=== PATIENT | female | born 1980 | race Hispanic/Latino ===

== ENCOUNTER 2016-10-04 05:53 | Inpatient (IN) ==
[2016-10-04] MEDS ORDERED: PEPCID PO ONE (05:59)
[2016-10-04] MEDS ORDERED: LR 1,000 ML IV SCH (05:59)
[2016-10-04] MEDS ORDERED: KEFZOL 1 GM/D5W 1 GM/50 ML IVPB IV PRN (05:59)
[2016-10-04] MEDS ORDERED: REGLAN PO ONE (05:59)
[2016-10-04] MEDS ORDERED: BICITRA PO ONE (06:15)
[2016-10-04] MEDS ORDERED: PEPCID IV ONE (06:15)
[2016-10-04] MEDS ORDERED: DURAMORPH ONE (06:24)
[2016-10-04] MEDS ORDERED: PITOCIN 20 UNITS/LR 20 UNITS/1,000 ML IV.SOLN ONE (06:24)
[2016-10-04] MEDS ORDERED: PITOCIN ONE (06:24)
[2016-10-04] MEDS ORDERED: EPHEDRINE ONE (06:24)
[2016-10-04] MEDS ORDERED: FENTANYL ONE (06:25)
[2016-10-04] MEDS: LR 1,000 ML IV SCH ×2 (06:34→07:02)
[2016-10-04 06:52] LABS: MANUAL DIFF NEEDED? NO; URINE SOURCE VOIDED
[2016-10-04 06:55] LABS: BILIRUBIN URINE NEGATIVE (NEGATIVE); BLOOD URINE NEGATIVE (NEGATIVE); CLARITY CLEAR (CLEAR); COLOR YELLOW; GLUCOSE URINE NEGATIVE (NEGATIVE); LEUKOCYTES URINE 1+ (NEGATIVE); NITRITE URINE NEGATIVE (NEGATIVE); PH URINE 6.5; PROTEIN URINE NEGATIVE (NEGATIVE); UROBILINOGEN URINE NORMAL
[2016-10-04 07:01] LABS: BASO% 0.3 % (0.0-0.8); EOS# 0.27 X1000 (0.0-0.7); HEMATOCRIT 36.5 % (37.0-47.0); HEMOGLOBIN 11.9 g/dL (12.0-16.0); IMM GRAN# 0.11 X1000 (0.0-0.04); IMM GRAN% 0.8 % (0.0-0.5); LYMPH# 3.33 X1000 (1.2-3.4); LYMPH% 24.6 % (20.5-51.1); MCHC 32.6 g/dL (33-37); MONO# 1.05 X1000 (0.11-0.59); MONO% 7.8 % (1.7-9.3); MPV 10.5 FL (7.4-10.4); NEUT% 64.5 % (42.2-75.2); PLT 338 X1000 (130-400)
[2016-10-04] MEDS ORDERED: NEO-SYNEPHRINE ONE (07:24)
[2016-10-04] MEDS ORDERED: ZOFRAN ONE (07:53)
[2016-10-04] MEDS ORDERED: TORADOL ONE (07:58)
[2016-10-04] MEDS ORDERED: AMBIEN PO PRN (09:10)
[2016-10-04] MEDS ORDERED: DEMEROL PO PRN ×2 (09:10)
[2016-10-04] MEDS ORDERED: PITOCIN IM PRN (09:10)
[2016-10-04] MEDS ORDERED: CYTOTEC PO PRN (09:10)
[2016-10-04] MEDS ORDERED: PITOCIN 20 UNITS/LR 20 UNITS/1,000 ML IV.SOLN IV ONE (09:10)
[2016-10-04] MEDS ORDERED: PHENERGAN IM PRN (09:10)
[2016-10-04] MEDS ORDERED: HYDROXYZINE IM PRN (09:10)
[2016-10-04] MEDS ORDERED: DULCOLAX PR PRN (09:10)
[2016-10-04] MEDS ORDERED: MYLICON PO PRN (09:10)
[2016-10-04] MEDS ORDERED: HYDROXYZINE PO PRN (09:10)
[2016-10-04] MEDS ORDERED: DEMEROL IM PRN (09:10)
[2016-10-04] MEDS ORDERED: ZOFRAN IV PRN ×2 (09:30)
[2016-10-04] MEDS ORDERED: ZOFRAN ODT PO PRN (09:30)
[2016-10-04] MEDS ORDERED: NARCAN INJ PRN (09:30)
[2016-10-04] MEDS ORDERED: BENADRYL IV PRN (09:30)
[2016-10-04] MEDS ORDERED: MORPHINE IV PRN (09:31)
[2016-10-04] MEDS: MYLICON PO SCH ×7 (11:27→20:16)
[2016-10-04] MEDS: PITOCIN 10 UNITS/LR 10 UNIT/1,000 ML IV.SOLN IV SCH ×2 (11:29→18:51)
[2016-10-04] MEDS: TORADOL IV SCH ×2 (18:49→23:22)
[2016-10-04] MEDS: PERICOLACE PO SCH (20:16)
--- NOTE | 2016-10-04 21:15 | OPERATIVE NOTE ---
PROCEDURE DATE: 10/04/2016 PREOPERATIVE DIAGNOSIS: 1. A 36-year-old, 4 para 2-0-1-2 at 39 weeks 3 days with a history of prior section x2. 2. Advanced maternal age. SURGEON: Dr. Coco Crocker. ESTIMATED BLOOD LOSS: 400 mL. [employer]: Nurse Max. FINDINGS: Omental adhesions to the anterior abdominal wall. Adhesions of the lower uterine segment. The vesicouterine peritoneum was adherent to the lower uterine segment. The lower uterine segment was very thin. The was delivered in right occiput anterior position, weighing 7 pounds 3 ounce, Apgars 8 and 9. COMPLICATIONS: None. TECHNIQUE: The patient was seen in the preop holding area where informed consent was verified. The patient agreed to proceed with planned procedure of repeat . The patient was taken to the OR. Timeout was held. A spinal was placed. Patient was then placed in the dorsal supine position with a left lateral tilt. Patient was prepped and draped in the normal sterile fashion. The anesthesia was found to be adequate. A Pfannenstiel incision was then made and carried down through the skin to the subcutaneous tissue to the fascia. The fascia was then incised in the midline and extended laterally using the Keller scissors. The anterior edge of the fascia was then grasped with the Janell clamps and the rectus muscles were dissected off of the fascia. The same was done to the inferior edge of the fascia. The rectus muscles were in the midline. The peritoneum was entered. The peritoneum was then extended laterally, superiorly and inferiorly manually. Abdominal adhesions were then taken down. The bladder flap was created after lysis of adhesions. A low transverse uterine incision was then made and extended laterally. The 's head was delivered atraumatically, followed by the body which had a body cord. The baby was bulb suctioned at delivery. The cord was then clamped and cut, and the was passed to the pediatric team. The placenta was then delivered intact, showing a 3- vessel cord. The uterus was then exteriorized and cleared of all debris and clots. The uterine incision was then closed with 0 Vicryl in a running, locked fashion. Figure of 8 sutures of 0 Vicryl was then used for good hemostasis. Good hemostasis was noted and the uterus was returned to the abdominal cavity. Irrigation was carried out until clear. The fascia was then reapproximated with running sutures of 0 Vicryl. The subcutaneous tissue was reapproximated with running sutures of 2-0 Vicryl. The skin was closed using running sutures of 3- 0 monocryl. A pressure dressing was placed. The patient tolerated the procedure well and was stable in the OR. The patient was taken to the recovery room in stable condition and the was taken to the nursery in stable condition. cc: Coco Crocker MD MTDAddy
[2016-10-05 06:42] LABS: MANUAL DIFF NEEDED? NO
[2016-10-05 06:54] LABS: BASO% 0.2 % (0.0-0.8); EOS# 0.33 X1000 (0.0-0.7); EOS% 2.7 % (0.0-10.0); HEMATOCRIT 34.2 % (37.0-47.0); IMM GRAN# 0.04 X1000 (0.0-0.04); IMM GRAN% 0.3 % (0.0-0.5); LYMPH# 2.45 X1000 (1.2-3.4); LYMPH% 20.3 % (20.5-51.1); MCH 28.7 PG (27-31); MCHC 32.2 g/dL (33-37); MCV 89.3 FL (81-99); MONO# 1.23 X1000 (0.11-0.59); MONO% 10.2 % (1.7-9.3); MPV 10.7 FL (7.4-10.4); NEUT% 66.3 % (42.2-75.2); PLT 325 X1000 (130-400); RBC 3.83 XMIL (4.2-5.4)
[2016-10-05] MEDS: MYLICON PO SCH ×5 (07:53→21:08)
[2016-10-05] MEDS ORDERED: PERCOCET-5 PO PRN (08:19)
[2016-10-05] MEDS ORDERED: LR 1,000 ML IV SCH (08:31)
[2016-10-05] MEDS: PERCOCET-10 PO PRN ×2 (12:30→19:06)
[2016-10-05] MEDS: MOTRIN PO PRN (18:21)
[2016-10-05] MEDS: PERICOLACE PO SCH (21:08)
[2016-10-06] MEDS ORDERED: BACITRACIN OINTMENT TOP PRN (00:04)
--- NOTE | 2016-10-06 00:12 | OB/GYN PROGRESS NOTE ---
Progress Note OB - . Patient Problems: Current Active Problems Problem Status Onset S/P repeat low transverse Acute OB Progress Note: Vital Signs - 24 hr 10/05/16 04:27 10/05/16 07:33 10/05/16 16:00 Temperature 98.1 F 98.4 F 98.2 F Pulse Rate 101 H 99 H 102 H Respiratory Rate 18 16 17 Blood Pressure 111/74 121/74 119/74 O2 Sat by Pulse Oximetry 97 98 10/05/16 21:06 Temperature 98.4 F Pulse Rate 94 H Respiratory Rate 18 Blood Pressure 121/66 O2 Sat by Pulse Oximetry 99 Laboratory Results - last 24 hr 10/05/16 05:00 WBC 12.08 H RBC 3.83 L Hgb 11.0 L Hct 34.2 L MCV 89.3 MCH 28.7 MCHC 32.2 L RDW Std Deviation 15.8 H Plt Count 325 MPV 10.7 H Immature Gran % (Auto) 0.3 Neut % (Auto) 66.3 Lymph % (Auto) 20.3 L [place] % (Auto) 10.2 H Eos % (Auto) 2.7 Baso % (Auto) 0.2 Immature Gran # (Auto) 0.04 Neut # (Auto) 8.00 H Lymph # (Auto) 2.45 [place] # (Auto) 1.23 H Eos # (Auto) 0.33 Baso # (Auto) 0.03 Patient reports soreness on abdomen where tape was removed. Ambulating and voiding without difficulty. Tolerating diet. Pain is well controlled. Reports minimal bleeding. Gen: NAD, alert Abd: incision clean dry and intact, fundus firm and at umbilicus; skin abrasions noted laterally where tape was applied Pelvis: minimal lochia rubra Ext: no edema, nontender, Lisa's- A/P: 36yo @ 39w3d who is POD#1 s/p RLTCS, doing well -continue routine care -continue regular diet -PO pain meds -encourage ambulation -bacitracin cream to skin abrasions Dispo: home tomorrow Coco Crocker MD [employer]
[2016-10-06] MEDS: PERCOCET-10 PO PRN (07:40)
[2016-10-06] MEDS: MOTRIN PO PRN (07:40)
[2016-10-06 07:48] VITALS: BP 115/68
[2016-10-06] MEDS: MYLICON PO SCH (09:15)
--- NOTE | 2016-11-08 18:22 | DISCHARGE SUMMARY ---
ADMISSION DATE: 10/04/2016 DISCHARGE DATE: 10/06/2016 ADMISSION DIAGNOSES: 1. A 36-year-old, 4, para 2-0-1-2, at 39 weeks 3 days. 2. History of prior section x2. 3. Advanced maternal age. PROCEDURE DATE: 10/04/2016 PROCEDURE: Repeat low transverse section. SURGEON: Dr. Coco Crocker. HOSPITAL COURSE: This 36-year-old 4, para 2-0-1-2 at 39 weeks and 3 days with a history of x2 and advanced maternal age underwent a repeat low transverse C- section, uncomplicated. Patient's postoperative course was unremarkable and patient was discharged home on postop day #2. PHYSICAL: General: No acute distress. Alert. Abdomen: Incision clean, dry , and intact. Fundus firm and below the umbilicus. Pelvis: Minimal lochia rubra. Extremities: No edema. Nontender. Homans- DISCHARGE INSTRUCTIONS: Keep incision clean and dry. Nothing per vagina. Patient may shower. The patient may continue regular diet. DISCHARGE MEDICATIONS: Percocet and ibuprofen. FOLLOWUP: Patient is to follow up with Dr. Crocker in clinic in 2 and 6 weeks. cc: Coco Crocker MD [facility]
== END 2016-10-06 13:00 | disposition home or self-care (01) ==
LOC: P.LD 05:53 → P.WC 10:48
PROVIDERS: ADMIT Student in an Organized Health Care Education/Training Program; ATTEND Student in an Organized Health Care Education/Training Program

== ENCOUNTER 2019-04-26 04:40 | Inpatient (IN) ==
--- NOTE | 2019-04-26 05:10 | EKG Report ---
Test Performed on : 04/26/2019 04:55:52 AM Test Reason : cp Blood Pressure : / mmHG Vent. Rate : 082 BPM Atrial Rate : 082 BPM P-R Int : 142 ms QRS Dur : 076 ms QT Int : 392 ms P-R-T Axes : 041 048 038 degrees QTc Int : 457 ms Normal sinus rhythm. Normal ECG No previous ECGs available Unconfirmed Result
[2019-04-26 05:57] LABS: URINE SOURCE CLEAN CATCH
[2019-04-26 05:58] LABS: BILIRUBIN URINE NEGATIVE (NEGATIVE); BLOOD URINE LARGE (NEGATIVE); COLOR BROWN; GLUCOSE URINE NEGATIVE (NEGATIVE); KETONE URINE NEGATIVE (NEGATIVE); LEUKOCYTES URINE MODERATE (NEGATIVE); NITRITE URINE NEGATIVE (NEGATIVE); PROTEIN URINE TRACE mg/dL (NEGATIVE); SP GRAVITY URINE 1.011; TURBIDITY URINE HAZY (CLEAR); UROBILINOGEN URINE NORMAL (NORMAL)
[2019-04-26 06:00] LABS: BASO# 0.03 X1000 (0.0-0.2); BASO% 0.2 % (0.0-0.8); EOS# 0.81 X1000 (0.0-0.7); EOS% 5.6 % (0.0-10.0); HEMATOCRIT 38.7 % (37.0-47.0); HEMOGLOBIN 12.6 g/dL (12.0-16.0); IMM GRAN# 0.05 X1000 (0.0-0.04); IMM GRAN% 0.3 % (0.0-0.5); LYMPH# 3.51 X1000 (1.2-3.4); LYMPH% 24.2 % (20.5-51.1); MCH 29.4 PG (27-31); MCHC 32.6 g/dL (33-37); MCV 90.2 FL (81-99); MONO# 0.92 X1000 (0.11-0.59); MONO% 6.3 % (1.7-9.3); MPV 10.2 FL (7.4-10.4); NEUT# 9.21 X1000 (1.4-6.5); NEUT% 63.4 % (42.2-75.2); PLT 337 X1000 (130-400); RBC 4.29 XMIL (4.2-5.4); RDW 14.6 % (11.5-14.5); WBC 14.53 X1000 (4.8-10.8)
[2019-04-26 06:00] LABS: UR EPITHELIAL CELLS <10 /HPF (<10); URINE BACTERIA NEGATIVE /HPF; URINE RBC TNTC /HPF (<10)
[2019-04-26 06:27] LABS: AGAP 14; ALB/GLOB RATIO 1.1; ALBUMIN 3.7 g/dL (3.5-5.0); ALKALINE PHOSPHATASE 99 U/L (32-104); BUN 14 mg/dL (8-22); CALCIUM 8.7 mg/dL (8.8-10.2); CHLORIDE 100 mmol/L (98-107); COSMO 273; CREATININE 0.5 mg/dL (0.5-0.9); ESTIMATED GFR > 60; GLUCOSE 107 mg/dL (70-104); GOT 13 U/L (10-30); GPT 11 U/L (10-36); LIPASE 11 U/L (13-60); POTASSIUM 3.5 mmol/L (3.5-5.1); SODIUM 136 mmol/L (136-145); TCO2 22 mmol/L (25-35); TOTAL BILIRUBIN 0.37 mg/dL (0.20-1.00); TOTAL PROTEIN 7.2 g/dL (6.3-8.3)
--- NOTE | 2019-04-26 06:27 | PROVIDER DOCUMENTATION ---
HPI-General Adult - General Chief Complaint: Epigastric Pain Stated Complaint: UPPER ABD PAIN/CHEST PAIN Time Seen by Provider: 04/26/19 04:57 Source: patient, family Allergies/Adverse Reactions: Patient Allergies Allergy/AdvReac Type Severity Reaction Status Date / Time No Known Allergies Allergy Verified 07/13/15 19:03 Home Medications: Home Medication List Medication Instructions Recorded Confirmed Last Taken Type Vit,Calc78/Iron/Folic 1 tab PO DAILY 07/13/15 10/04/16 Unknown History [Prenatabs FA Tablet] Ibuprofen [Motrin] 800 mg PO Q6H PRN PRN #30 tablet 10/05/16 Unknown Rx Oxycodone HCl/Acetaminophen 1 each PO Q4H PRN PRN #30 tablet 10/05/16 Unknown Rx [Percocet 5-325 mg Tablet] - History of Present Illness -Gen Adult Nature of Presenting Problems: Pt presents with RUQ pain, sharp, no radiation, constant, started a few hours ago, associated with n/v, pt has had similar a couple of months ago, pt has no pcp and hasn't been evaluated for it, pt denies f/c, bird, cp, sob, cough, diarrhea, pt is lying in bed in no acute distress. Location of Pain/Injury: reports: abdomen Pain Radiation: reports: no radiation Quality of Pain: reports: sharp Severity: reports: moderate Onset/Duration: reports: 1-3 hours ago Timing: reports: still present Context/Activities at Onset: reports: none Modifying Factors: improves with: nothing Associated Symptoms: reports: nausea, vomiting Similar Symptoms Previously?: Yes Recently seen or treated by another doctor?: No Review of Systems - Adult - REVIEW OF SYSTEMS - ADULT Constitutional: reports: no symptoms reported Eyes: reports: no symptoms reported Ears, Nose, Mouth & Throat: reports: no symptoms reported Cardiovascular: reports: no symptoms reported Respiratory: reports: no symptoms reported Gastrointestinal: reports: see HPI Genitourinary: reports: no symptoms reported Musculoskeletal: reports: no symptoms reported Integumentary: reports: no symptoms reported Neurological: reports: no symptoms reported Psychiatric: reports: no symptoms reported Endocrine: reports: no symptoms reported Hematologic/Lymphatic: reports: no symptoms reported Allergic/Immunologic: reports: no symptoms reported All Other Systems: Reviewed and Negative Past History - Adult - PAST MEDICAL HISTORY-ADULT Review of Records: reports: Old Records Reviewed, Nursing Assessment Review, Medications Reviewed, Social history reviewed & non-contributory. Major Childhood Illnesses: reports: denies history Cardiovascular: reports: denies history Respiratory: reports: denies history Gastrointestinal: reports: denies history Obstetrical/Gynecological: reports: denies history Genitourinary: reports: denies history Musculoskeletal: reports: denies history Neurological: reports: denies history Psychiatric: reports: denies history Endocrine/Immune: reports: denies history Other Conditions: reports: denies history - PRIOR SURGERIES/PROCEDURES Surgical/Procedure History: reports: none - IMMUNIZATION STATUS Childhood Immunizations: See Nurse Assessment Flu Vaccine: See Nurse Assessment Physical Exam-General - PHYSICAL EXAM-ADULT Initial Vital Signs Reviewed: Yes - CONSTITUTIONAL General Appearance: appears well - EYES Eyes: PERRL/EOMI - HEAD, EARS, NOSE, MOUTH & THROAT HENMT: normocephalic/atraumatic - NECK Neck: normal inspection - RESPIRATORY Respiratory: lungs clear, no respiratory distress, no accessory muscle use - CARDIOVASCULAR Cardiovascular: regular rate, rhythm - GASTROINTESTINAL (ABDOMEN) Abdominal Exam: normal bowel sounds, soft, tenderness (RUQ). negative: guarding - LYMPHATIC Lymphatic: no adenopathy - MUSCULOSKELETAL Back Exam: normal inspection Extremity: normal range of motion - SKIN Integumentary: normal color - NEUROLOGIC Neurologic: grossly normal - PSYCHIATRIC Psych/Mental Status: normal mood/affect Progress - PLAN OF CARE/RESULTS Progress/Plan/Lab Results: Vital Signs - 8 hr 04/26/19 04:45 Temperature 97.6 F Pulse Rate 74 Respiratory Rate 22 Blood Pressure 150/108 O2 Sat by Pulse Oximetry 98 Laboratory Results - last 24 hr 04/26/19 04/26/19 05:38 05:45 WBC 14.53 H RBC 4.29 Hgb 12.6 Hct 38.7 MCV 90.2 MCH 29.4 MCHC 32.6 L RDW Std Deviation 14.6 H Plt Count 337 MPV 10.2 Immature Gran % (Auto) 0.3 Neut % (Auto) 63.4 Lymph % (Auto) 24.2 [place] % (Auto) 6.3 Eos % (Auto) 5.6 Baso % (Auto) 0.2 Immature Gran # (Auto) 0.05 H Neut # (Auto) 9.21 H Lymph # (Auto) 3.51 H [place] # (Auto) 0.92 H Eos # (Auto) 0.81 H Baso # (Auto) 0.03 Urine Source CLEAN CATCH Urine Color BROWN Urine Turbidity HAZY Urine pH 6.0 Ur Specific [place] 1.011 Urine Protein TRACE A Ur Glucose (Stick) NEGATIVE Ur Ketones (Stick) NEGATIVE Urine Blood LARGE A Urine Nitrite NEGATIVE Urine Bilirubin NEGATIVE Urobilinogen Dipstick NORMAL Urine Leukocytes MODERATE A Urine WBC (Auto) 10-20 A Urine RBC (Auto) TNTC A U Epithel Cells (Auto) <10 Urine Bacteria (Auto) NEGATIVE Orders Category Date Time Status ED: Urine Bedside NOW Care 04/26/19 05:14 Active US GB < RUQ (LIMITED) [US] Stat Exams 04/26/19 05:14 Ordered CBC WITH ELECTRONIC DIFF [HEME] Stat Lab 04/26/19 05:38 Completed COMPREHENSIVE METABOLIC PANEL [CHEM] Stat Lab 04/26/19 05:38 Received LIPASE [CHEM] Stat Lab 04/26/19 05:38 Received URINALYSIS [URINALYSIS] Stat Lab 04/26/19 05:45 Completed EKG [EKG] Stat Ther 04/26/19 04:57 Draft Result Diagrams: 04/26/19 05:38 04/26/19 05:38 - REASSESSMENT Reassessment #1 Time Reassessed: 09:29 (assumed care @ shift change. seen, examined. nonstop, sharp epigastric/RUQ pain since yest, N/V. Tender to epigastrum, RUQ) - CONSULTS/PCP/HOSPITALIST Notification #1 *Consult/PCP/Hospitalist*: Paramjit Time Discussed: 09:35 Consult Disposition: Admit - CHANGE OF SHIFT REPORT (ED Provider) 1 Report Given and Care Transferred to:: Dr. Mehta Time of Transfer: 07:00 Departure - Departure Date of Disposition Decision: 04/26/19 Time of Disposition Decision: 09:35 DIAGNOSIS: Cholelithiasis Qualifiers: Cholelithiasis location: gallbladder Cholecystitis presence: without cholecystitis Biliary obstruction: without biliary obstruction Qualified Code(s): K80.20 - Calculus of gallbladder without cholecystitis without obstruction Disposition: ADMITTED INPATIENT 09 Certified Medical Emergency: Emergent Condition: Good Referrals and Follow-Ups: Coco Crocker MD [Primary Care Provider] - - Critical Care Note This patient required my direct & personal management of CC.: No Attestation - Physician/ MAXX Attestation Patient care was provided by Advanced Practice Provider:: No The physician spent face to face time with patient:: Yes Advanced Practice Provider documentation review:: Supervising physician onsite and consulted in the evaluation and care of this patient. The physician did have a face to face encounter with the patient.
--- NOTE | 2019-04-26 09:07 | Diag Imaging Result Doc PS360 ---
EXAM: US GB < RUQ (LIMITED) HISTORY: ruq pain, eval for gallstones TECHNIQUE: Right upper quadrant ultrasound COMPARISON: None. FINDINGS: Normal pancreatic body. The head and tail are obscured. No aortic aneurysm. Normal inferior vena cava. There is fatty infiltration of the liver. There are multiple stones within the gallbladder. The gallbladder wall is not thickened. The common bile duct measures 4 mm. Normal right kidney. No hydronephrosis. No ascites in the right upper quadrant. IMPRESSION: 1.Cholelithiasis 2.Mild fatty infiltration of the liver Electronically signed by Mitchell Monsivais 04/26/2019 9:04 AM
[2019-04-26] MEDS ORDERED: ZOSYN 3.375 GM in NS 50 ML IV ONE (09:33)
[2019-04-26] MEDS ORDERED: NS 1,000 ML IV ONE (09:33)
[2019-04-26] MEDS ORDERED: DILAUDID IV ONE (09:33)
[2019-04-26] MEDS ORDERED: ZOFRAN IV PRN (10:13)
--- NOTE | 2019-04-26 10:32 | Diag Imaging Result Doc PS360 ---
EXAM: CHEST-PORTABLE HISTORY: pre-op TECHNIQUE: Single view COMPARISON: None. FINDINGS: Poor inspiratory effort. The heart is not enlarged. The vessels are not distended. There are no infiltrates. No effusion identified. IMPRESSION: Negative exam. Electronically signed by Mitchell Monsivais 04/26/2019 10:30 AM
--- NOTE | 2019-04-26 11:42 | HISTORY AND PHYSICAL ---
CHIEF COMPLAINT: Abdominal pain. REASON FOR CONSULTATION: Symptomatic cholelithiasis. HISTORY OF PRESENT ILLNESS: This is a 39-year-old female who presented with right upper quadrant abdominal discomfort over the course of the night last night. She has had intermittent episodes in the past. No jaundice. Bowel function has otherwise been normal. She did not eat anything abnormal and she came to the ER where ultrasound was obtained that showed gallstones within the gallbladder. The remainder of her workup has been unrevealing. MEDICAL HISTORY: Negative. SURGICAL HISTORY: . SOCIAL HISTORY: No tobacco, alcohol, or drugs. FAMILY HISTORY: Negative for cancer. REVIEW OF SYSTEMS: Ten point review of systems was performed and negative otherwise mentioned HPI. OBJECTIVE: Vital Signs: Temperature 97.8 degrees, pulse 69, blood pressure 126/77. Oxygen saturation is 90%. General: She is alert, in no acute distress. HEENT: No scleral icterus. No cervical mass. Cardiovascular: Normal rate. Pulmonary: No increased work of breathing. Abdomen: Soft. She is tender in the right upper quadrant but mildly so with no peritonitis. Integument: Warm and dry without jaundice. Psychiatric: Appropriate affect. Neurologic: No gross deficits. Lymphatic: No cervical or axillary adenopathy. Peripheral vascular: No lower extremity edema. LABORATORY DATA: White count is 14, hematocrit 38, platelets 337,000. Creatinine 0.5, bilirubin AST, ALT and alkaline phosphatase are normal. Lipase is low at 11. Urinalysis does have blood and leukocytes, but she started her menstrual period today. ASSESSMENT AND PLAN: A 39-year-old female with symptomatic cholelithiasis. I do not see any evidence of biliary obstruction or cholecystitis. I have recommended admission and given her persistent symptoms and cholecystectomy, we will either try this later today or 1st thing in the morning depending on the operating room schedule. We will keep her on Zosyn preemptively. We discussed risks of bleeding, infection, damage to surrounding structures, bile leak, conversion to open. She understands all this and consents. cc: Pola Yusuf MD
[2019-04-26] MEDS ORDERED: ZOSYN ONE (11:53)
[2019-04-26] MEDS ORDERED: ZOSYN 3.375 GM in NS 50 ML IV SCH (15:00)
[2019-04-26] MEDS: LR 1,000 ML IV SCH (15:26)
[2019-04-26] MEDS: ZOSYN 3.375 GM in NS 50 ML IV SCH ×2 (15:27→20:12)
[2019-04-26] MEDS: DILAUDID IV PRN ×2 (15:41→20:18)
[2019-04-26] MEDS: ZOFRAN IV PRN (17:15)
[2019-04-27] MEDS: LR 1,000 ML IV SCH ×2 (02:02→04:17)
[2019-04-27] MEDS: ZOFRAN IV PRN ×2 (02:02→14:30)
[2019-04-27] MEDS: ZOSYN 3.375 GM in NS 50 ML IV SCH ×3 (04:17→14:32)
[2019-04-27] MEDS: DILAUDID IV PRN (05:30)
[2019-04-27] MEDS ORDERED: MARCAINE 0.25% PF/EPI 1:200,000 ONE (07:31)
[2019-04-27] MEDS ORDERED: LR 1,000 ML ONE (07:32)
[2019-04-27] MEDS ORDERED: SODIUM CHLORIDE 0.9% ONE (07:32)
[2019-04-27] MEDS ORDERED: DIPRIVAN 1% ONE (08:25)
[2019-04-27] MEDS ORDERED: FENTANYL ONE (08:25)
[2019-04-27] MEDS ORDERED: TORADOL ONE (09:10)
[2019-04-27] MEDS ORDERED: QUELICIN (DOSE) ONE (09:10)
[2019-04-27] MEDS ORDERED: ZOFRAN ONE (09:10)
[2019-04-27] MEDS ORDERED: NEOSTIGMINE ONE (09:10)
[2019-04-27] MEDS ORDERED: ROBINUL ONE (09:10)
[2019-04-27] MEDS ORDERED: XYLOCAINE-MPF 2% ONE (09:10)
[2019-04-27] MEDS ORDERED: ZEMURON ONE (09:10)
--- NOTE | 2019-04-27 09:42 | Diag Imaging Result Doc PS360 ---
EXAM: OPERATIVE CHOLANGIOGRAM - 04/27/2019 HISTORY: ACUTE CHOLECYSTITIS TECHNIQUE: Intraoperative cholangiogram one view. COMPARISON: 04/26/2019 ultrasound gallbladder FINDINGS: The procedure was performed by the referring provider the OR. There is contrast in the cystic duct, common bile/hepatic duct, central intrahepatic radicles, and duodenum. There are no filling defects identified in the opacified system. There is no other discrete abnormality identified. IMPRESSION: Unremarkable exam. No evidence of stone. Electronically signed by Garry Rushing 04/27/2019 9:40 AM
--- NOTE | 2019-04-27 13:53 | OPERATIVE NOTE ---
PROCEDURE DATE: 04/27/2019 OPERATIVE NOTE: PREOP DIAGNOSIS Acute cholecystitis. POSTOP: 1. Cholelithiasis. 2. Acute cholecystitis. PROCEDURE PERFORMED: Laparoscopic cholecystectomy with cholangiogram. ESTIMATED BLOOD LOSS: 10 mL. SPECIMENS: Gallbladder. ANESTHESIA: General. INDICATIONS: 39-year-old female presented with pain during the day yesterday. Ultrasound showed gallstones but there was no suggestion of cholelithiasis although she did have leukocytosis. OPERATIVE FINDINGS: 1. There was edematous dilated gallbladder with numerous large stones impacted within the neck the gallbladder. 2. Interpretation cholangiogram showed rapid flow of contrast through a small cystic duct into nondilated common bile duct and into the duodenum with no filling defects. Intrahepatic radicals bilaterally appeared normal. OPERATIVE NOTE: Risks, benefits, alternatives discussed with patient, she consented procedure seen preop surgery site was confirmed taken operating room placed supine position general anesthesia induced without complication. All bony prominences padded, her abdomen is prepped with chlorhexidine and draped usual fashion. Time-out a supraumbilical incision was made. She is quite obese and is a lot of subcutaneous adipose tissue. We carried down the fascia, fascia incised and the abdomen was entered in open controlled fashion, a 12 mm Lewis trocar was placed, abdomen was then insufflated and 3 additional trocars were placed 5 mm 1 in the epigastrium, 1 midclavicular line off the costal margin 1 more laterally. The gallbladder was decompressed with suction decompression catheter and was retracted cephalad. There was a very enlarged inflamed Calot node that we dissected down exposing the infundibulum and dissected out through the triangle between the cystic duct and infundibulum. There was a cystic artery that coursed through this as well that was encircled. After establishing the critical view we doubly clipped the artery and placed clip on the gallbladder side of the duct, made ductotomy, performed cholangiogram after satisfactory cholangiogram we reestablished our exposure, triply clipped the cystic duct, divided both the duct and the artery, removed the gallbladder from the gallbladder fossa intact obtaining hemostasis as we went. The gallbladder was placed in EndoCatch bag. We copiously irrigated the abdomen till clear, was good closure cystic duct stump, no bile leakage and no bleeding. Then brought the remaining trocars out under direct visualization, the abdomen was deflated, we brought the gallbladder out through umbilical incision made slightly larger and closed this with 0 Vicryl sutures. Skin was closed with surgical clips, gauze, Medipore dressing applied. She was woken transferred recovery I spoke with family. cc: Pola Yusuf MD [facility]
[2019-04-27] MEDS: MORPHINE IV PRN ×2 (14:30→14:35)
[2019-04-27 15:52] VITALS: BP 123/70
[2019-04-27] MEDS ORDERED: FLU VACCINE IM ONE (18:24)
== END 2019-04-27 18:23 | disposition home or self-care (01) | DRG 418 ==
LOC: ED 04:40 → 4N 10:04 → EDIPHOLD 10:11 → 4N 11:16
PROVIDERS: ADMIT Surgery; ATTEND Surgery